=== PATIENT | male | born 1970 | race Caucasian/White ===

== ENCOUNTER 2017-04-19 20:39 | Emergency (ER) | payer OTHER ==
[~2017-04-19] VITALS: Ht 182.9 cm; Wt 86.2 kg
[2017-04-19] MEDS ORDERED: IBUPROFEN600 MG ORAL (21:09)
--- NOTE | 2017-04-19 21:10 | Emergency Room Report ---
History of Present Illness General Chief Complaint: Pain Source: Patient Present Illness HPI Is a 46-year-old male with no past medical history. He presents with chief complaint of left groin pain. He was at work when he lifted a heavy box and felt some twinge and pain in his left groin area. It worsened today as he was pushing the cart with a box on it. He denies any other trauma. No mass. Described pain as an achiness. No fever or chills. Pain is 5/10. Denies any other complaint. Allergies: Coded Allergies: No Known Allergies (Unverified , 04/19/17) Patient History Past Medical History: see triage record, old chart reviewed Past Surgical History: none Pertinent Family History: none Social History: Denies: smoking Immunizations: other Reviewed Nursing Documentation: PMH: Agreed, PSxH: Agreed Nursing Documentation-PMH Past Medical History: No Stated History Review of Systems Eye: Denies: eye pain, blurred vision ENT: Denies: ear pain, nose congestion, throat swelling Respiratory: Denies: cough, shortness of breath Cardiovascular: Denies: chest pain, palpitations Gastrointestinal: Denies: abdominal pain, diarrhea, nausea, vomiting Musculoskeletal: Denies: back pain, joint pain Skin: Denies: rash Neurological: Denies: headache, numbness Endocrine: Denies: increased thirst, increased urine Hematologic/Lymphatic: Denies: easy bruising All Other Systems: negative except mentioned in HPI Physical Exam Vital Signs Date Time Temp Pulse Resp B/P (MAP) Pulse Ox O2 Delivery O2 Flow Rate FiO2 04/19/17 20:45 97.6 50 18 142/90 99 Room Air 97.5 vitals normal Sp02 EP Interpretation: reviewed, normal General Appearance: well appearing, no apparent distress, alert Head: normocephalic, atraumatic Eyes: bilateral eye PERRL, bilateral eye EOMI ENT: hearing grossly normal, normal pharynx Neck: full range of motion, supple, no meningismus Respiratory: chest non-tender, lungs clear, normal breath sounds Cardiovascular #1: regular rate, rhythm, no murmur Gastrointestinal: normal bowel sounds, non tender, no mass, no organomegaly, no bruit, non-distended Genitourinary: other - Left inguinal pain the other scrotal area. No palpable mass. No palpable hernia. Musculoskeletal: back normal, gait/station normal, normal range of motion Neurologic: alert, oriented x3 Psychiatric: mood/affect normal Skin: warm/dry Medical Decision Making Diagnostic Impression: Primary Impression: Strain of left inguinal muscle Qualified Codes: S39.013A - Strain of muscle, fascia and tendon of pelvis, initial encounter ER Course Patient with a left groin strain. No evidence of tear, fracture dislocation. May be an early or very small hernia that not palpable. We'll treat conservatively and discharge him. Last Vital Signs Date Time Temp Pulse Resp B/P (MAP) Pulse Ox O2 Delivery O2 Flow Rate FiO2 04/19/17 20:45 97.6 50 18 142/90 99 Room Air 97.5 Status: unchanged Disposition: HOME, SELF-CARE Condition: Stable Scripts Ibuprofen* (MOTRIN*) 600 Mg Tablet 600 MG ORAL THREE TIMES A DAY, #30 TAB 0 Refills Prov: CESAR HECTOR M.D. 04/19/17 Additional Instructions: Followup with your DrJames in 7 days. No heavy lifting for a week. Return if worse. CESAR HECTOR M.D. Apr 19, 2017 21:09
[2017-04-19 21:17] VITALS: BP 142/90
== END 2017-04-19 21:30 | disposition home or self-care (01) ==
LOC: EMR 21:21
DX: S39.011A Strain of muscle, fascia and tendon of abdomen, initial encounter (principal); X50.0XXA Overexertion from strenuous movement or load, initial encounter; Y92.59 Other trade areas as the place of occurrence of the external cause; Y99.0 Civilian activity done for income or pay
CPT/HCPCS: 99283